=== PATIENT | female | born 1995 | race Caucasian/White ===

== ENCOUNTER → 2024-02-16 12:31 | Outpatient (REF) | payer BC, SELFPAY | LOC: HWRAD 12:31 | PROVIDERS: ATTENDING PHYSICIAN Internal Medicine Gastroenterology; FAMILY PHYSICIAN Internal Medicine | DX: K82.4 Cholesterolosis of gallbladder (principal); R10.11 Right upper quadrant pain | CPT/HCPCS: 76700 ==